=== PATIENT | female | born 1960 | race Hispanic/Latino ===

== ENCOUNTER 2021-04-04 14:54 | Inpatient (IN) | payer BC ==
[~2021-04-04] VITALS: Ht 157.5 cm; Wt 74.8 kg
[2021-04-04 15:47] LABS: BASOPHILS % 0.2 % (0.0-1.0); HEMOGLOBIN 15.9 g/dL (12.0-16.0); LYMPHOCYTES # (AUTO) 0.5 (1.0-3.2); LYMPHOCYTES % 11.9 % (18.0-39.1); MEAN CORPUSCULAR HEMOGLOBIN 26.9 pg (28-32); MEAN CORPUSCULAR HGB CONC 33.1 g/dL (31-35); MEAN CORPUSCULAR VOLUME 81.1 fL (81-99); MONOCYTES # (AUTO) 0.6 (0.2-0.8); MONOCYTES % 12.5 % (4.4-11.3); NEUTROPHILS # (AUTO) 3.3 (2.1-6.9); NEUTROPHILS % 74.7 % (38.7-80.0); PLATELET COUNT 194 x10e3/uL (140-360); RED BLOOD COUNT 5.92 x10e6/uL (3.6-5.1); RED CELL DISTRIBUTION WIDTH 13.2 % (11.7-14.4)
[2021-04-04 16:01] LABS: ALBUMIN 3.4 g/dL (3.5-5.0); ALBUMIN/GLOBULIN RATIO 0.9 (0.8-2.0); CALCIUM 9.3 mg/dL (8.4-10.2); CREATININE, SERUM 0.79 mg/dL (0.57-1.11)
[2021-04-04] MEDS ORDERED: SODIUM CHLORIDE 0.9% 50ML 50 ML ONE (16:27)
[2021-04-04] MEDS ORDERED: IOPAMIDOL 370 MG/ML 200 ML INFUS..BTL INJ ONE (16:27)
[2021-04-04] MEDS ORDERED: METHYLPREDNISOLONE SOD SUCC 125 MG/2ML VIAL IV ONE (17:15)
[2021-04-04] MEDS ORDERED: GUAIFENESIN/CODEINE 5 ML LIQD PO PRN (18:15)
[2021-04-04] MEDS ORDERED: ONDANSETRON HCL INJ 2MG/ML 2ML 2 MG/ML VIAL IV PRN (18:15)
[2021-04-04] MEDS ORDERED: ACETAMINOPHEN 325 MG TAB PO PRN (18:15)
[2021-04-04 18:50] VITALS: BP 138/79
[2021-04-04] MEDS ORDERED: CEFTRIAXONE 1 GM in SODIUM CHLORIDE 0.9% 50ML 50 ML IV SCH (19:00)
[2021-04-04 19:05] VITALS: BP 130/85
[2021-04-04 19:20] VITALS: BP 138/79
[2021-04-04 20:00] VITALS: BP 138/79
[2021-04-04] MEDS ORDERED: REMDESIVIR 100MG 200 MG in SODIUM CHLORIDE 0.9% 100 ML IV ONE (20:30)
[2021-04-04] MEDS ORDERED: SODIUM CHLORIDE 0.9% 250ML 250 ML ONE (21:24)
[2021-04-05] VITALS (8 sets, daily range): BP systolic 126–149; BP diastolic 64–82
[2021-04-05] MEDS ORDERED: LEVOTHYROXINE75 MCG PO (00:15)
[2021-04-05] MEDS ORDERED: LISINOPRIL-HCT1 EACH (00:15)
[2021-04-05] MEDS ORDERED: DEXTROSE 50% SYRINGE 50 ML IV PRN (00:30)
[2021-04-05] MEDS ORDERED: DOCUSATE SODIUM 100 MG CAP PO PRN (00:30)
[2021-04-05] MEDS ORDERED: POTASSIUM CHLORIDE 20 MEQ TAB CR PO PRN (00:30)
[2021-04-05] MEDS ORDERED: ALBUTEROL/IPRATROPIUM 3 ML NEB NEB PRN (00:30)
[2021-04-05] MEDS ORDERED: DIPHENHYDRAMINE HCL 25 MG CAP PO PRN (00:30)
[2021-04-05] MEDS ORDERED: TRAMADOL HCL 50 MG TAB PO PRN (00:30)
[2021-04-05] MEDS ORDERED: HYDRALAZINE HCL 20 MG/ML VIAL IV PRN (00:30)
[2021-04-05] MEDS ORDERED: ACETAMINOPHEN 325 MG TAB PO PRN (00:30)
[2021-04-05] MEDS ORDERED: MELATONIN 5 MG TABLET PO PRN ×2 (00:30→14:15)
[2021-04-05] MEDS ORDERED: BENZONATATE 100 MG CAP PO PRN (00:30)
[2021-04-05] MEDS ORDERED: ONDANSETRON HCL INJ 2MG/ML 2ML 2 MG/ML VIAL IV PRN (00:30)
[2021-04-05] MEDS ORDERED: SIMETHICONE 80 MG CHEW PO PRN (00:30)
[2021-04-05] MEDS ORDERED: LIDOCAINE 4% PATCH TP PRN (00:30)
[2021-04-05] MEDS: MIDODRINE 2.5 MG TAB PO SCH ×2 (08:14→12:33)
[2021-04-05] MEDS: PANTOPRAZOLE SOD 40 MG TABEC PO SCH (08:14)
[2021-04-05] MEDS: ZINC SULFATE 50 MG CAP PO SCH (08:51)
[2021-04-05] MEDS: DEXAMETHASONE SOD PHOS 10 MG/1 ML VIAL IV SCH (08:51)
[2021-04-05] MEDS: ASCORBIC ACID 500 MG TAB PO SCH ×2 (08:51→16:49)
[2021-04-05] MEDS: REMDESIVIR 100MG 100 MG in SODIUM CHLORIDE 0.9% 100 ML IV SCH (14:47)
[2021-04-05] MEDS: ENOXAPARIN SOD INJ 40 MG/0.4 ML SYR SC SCH (16:49)
[2021-04-06] VITALS (11 sets, daily range): BP systolic 126–147; BP diastolic 59–78
[2021-04-06 05:03] LABS: HEMATOCRIT 44.1 % (34.2-44.1); HEMOGLOBIN 14.3 g/dL (12.0-16.0); LYMPHOCYTES # (AUTO) 0.7 (1.0-3.2); LYMPHOCYTES % 10.6 % (18.0-39.1); MEAN CORPUSCULAR HEMOGLOBIN 26.8 pg (28-32); MEAN CORPUSCULAR HGB CONC 32.4 g/dL (31-35); MEAN CORPUSCULAR VOLUME 82.7 fL (81-99); MONOCYTES # (AUTO) 0.7 (0.2-0.8); MONOCYTES % 11.9 % (4.4-11.3); NEUTROPHILS # (AUTO) 4.7 (2.1-6.9); NEUTROPHILS % 76.8 % (38.7-80.0); PLATELET COUNT 230 x10e3/uL (140-360); RED BLOOD COUNT 5.33 x10e6/uL (3.6-5.1); RED CELL DISTRIBUTION WIDTH 13.3 % (11.7-14.4)
[2021-04-06 05:30] LABS: ANION GAP 15.9 mmol/L (8-16); CALCIUM 9.1 mg/dL (8.4-10.2); CREATININE, SERUM 0.81 mg/dL (0.57-1.11); POTASSIUM 3.9 mmol/L (3.5-5.1)
[2021-04-06] MEDS ORDERED: DEXTROSE 50% SYRINGE 50 ML IV PRN (06:45)
[2021-04-06] MEDS: INSULIN LISPRO 100 UNIT/1 ML 3ML VIAL SQ SCH ×4 (07:30→20:25)
[2021-04-06] MEDS: ASCORBIC ACID 500 MG TAB PO SCH ×2 (08:40→16:29)
[2021-04-06] MEDS: PANTOPRAZOLE SOD 40 MG TABEC PO SCH (08:40)
[2021-04-06] MEDS: ZINC SULFATE 50 MG CAP PO SCH (08:40)
[2021-04-06] MEDS: DEXAMETHASONE SOD PHOS 10 MG/1 ML VIAL IV SCH (08:40)
[2021-04-06] MEDS: REMDESIVIR 100MG 100 MG in SODIUM CHLORIDE 0.9% 100 ML IV SCH (13:38)
[2021-04-06] MEDS ORDERED: ONDANSETRON HCL 4 MG ORAL DISINTEGRATING TAB PO PRN (14:45)
[2021-04-06] MEDS: ENOXAPARIN SOD INJ 40 MG/0.4 ML SYR SC SCH (16:29)
[2021-04-06] MEDS: AZITHROMYCIN 250 MG TAB PO SCH (20:20)
[2021-04-07] VITALS (7 sets, daily range): BP systolic 118–152; BP diastolic 61–68
[2021-04-07] MEDS: INSULIN LISPRO 100 UNIT/1 ML 3ML VIAL SQ SCH ×4 (08:30→21:28)
[2021-04-07] MEDS: ZINC SULFATE 50 MG CAP PO SCH (09:40)
[2021-04-07] MEDS: PANTOPRAZOLE SOD 40 MG TABEC PO SCH (09:40)
[2021-04-07] MEDS: DEXAMETHASONE SOD PHOS 10 MG/1 ML VIAL IV SCH (09:40)
[2021-04-07] MEDS: ASCORBIC ACID 500 MG TAB PO SCH ×2 (09:40→16:50)
[2021-04-07] MEDS: REMDESIVIR 100MG 100 MG in SODIUM CHLORIDE 0.9% 100 ML IV SCH (14:27)
[2021-04-07] MEDS: ENOXAPARIN SOD INJ 40 MG/0.4 ML SYR SC SCH (16:50)
[2021-04-07] MEDS: AZITHROMYCIN 250 MG TAB PO SCH (20:12)
[2021-04-08] VITALS (8 sets, daily range): BP systolic 121–150; BP diastolic 66–99
[2021-04-08] MEDS: INSULIN LISPRO 100 UNIT/1 ML 3ML VIAL SQ SCH ×4 (07:30→21:15)
[2021-04-08] MEDS: PANTOPRAZOLE SOD 40 MG TABEC PO SCH (07:30)
[2021-04-08] MEDS: ASCORBIC ACID 500 MG TAB PO SCH ×2 (09:00→16:42)
[2021-04-08] MEDS: ZINC SULFATE 50 MG CAP PO SCH (09:00)
[2021-04-08] MEDS: DEXAMETHASONE SOD PHOS 10 MG/1 ML VIAL IV SCH (09:00)
[2021-04-08 10:23] LABS: ANION GAP 14.9 mmol/L (8-16); CALCIUM 9.2 mg/dL (8.4-10.2); CREATININE, SERUM 0.8 mg/dL (0.57-1.11); POTASSIUM 3.9 mmol/L (3.5-5.1)
[2021-04-08] MEDS: REMDESIVIR 100MG 100 MG in SODIUM CHLORIDE 0.9% 100 ML IV SCH (14:00)
[2021-04-08] MEDS: ENOXAPARIN SOD INJ 40 MG/0.4 ML SYR SC SCH (16:43)
[2021-04-09] VITALS (8 sets, daily range): BP systolic 126–157; BP diastolic 69–80
[2021-04-09 05:45] LABS: ANION GAP 15.2 mmol/L (8-16); CREATININE, SERUM 0.79 mg/dL (0.57-1.11); POTASSIUM 4.2 mmol/L (3.5-5.1)
[2021-04-09 05:46] LABS: CALCIUM 8.6 mg/dL (8.4-10.2)
[2021-04-09] MEDS: PANTOPRAZOLE SOD 40 MG TABEC PO SCH (08:33)
[2021-04-09] MEDS: DEXAMETHASONE SOD PHOS 10 MG/1 ML VIAL IV SCH (08:33)
[2021-04-09] MEDS: ASCORBIC ACID 500 MG TAB PO SCH ×2 (08:33→16:53)
[2021-04-09] MEDS: ZINC SULFATE 50 MG CAP PO SCH (08:33)
[2021-04-09] MEDS: INSULIN LISPRO 100 UNIT/1 ML 3ML VIAL SQ SCH ×5 (11:50→22:01)
[2021-04-09 15:05] LABS: FREE T4 (FREE THYROXINE) 1.03 ng/dL (0.8-1.8); THYROID STIMULATING HORMONE 0.857 uIU/mL (0.350-4.940)
[2021-04-09] MEDS: ENOXAPARIN SOD INJ 40 MG/0.4 ML SYR SC SCH (16:54)
[2021-04-09] MEDS: INSULIN GLARGINE 100 UNITS/ML VIAL SQ SCH (16:58)
[2021-04-10 01:27] VITALS: BP 148/78
[2021-04-10 05:58] VITALS: BP 149/73
[2021-04-10] MEDS: INSULIN LISPRO 100 UNIT/1 ML 3ML VIAL SQ SCH ×4 (07:30→11:58)
[2021-04-10 08:00] VITALS: BP 157/83
[2021-04-10] MEDS: PANTOPRAZOLE SOD 40 MG TABEC PO SCH (08:04)
[2021-04-10 08:17] VITALS: BP 157/83
[2021-04-10] MEDS: ZINC SULFATE 50 MG CAP PO SCH (08:40)
[2021-04-10] MEDS: ASCORBIC ACID 500 MG TAB PO SCH (08:40)
[2021-04-10] MEDS: DEXAMETHASONE SOD PHOS 10 MG/1 ML VIAL IV SCH (08:41)
[2021-04-10] MEDS: INSULIN GLARGINE 100 UNITS/ML VIAL SQ SCH (08:45)
[2021-04-10 09:00] VITALS: BP 157/83
[2021-04-10 12:00] VITALS: BP 139/69
[2021-04-10] MEDS ORDERED: INSULIN LISPRO 100 UNIT/1 ML 3ML VIAL SQ SCH (16:30)
[2021-04-10] MEDS ORDERED: INSULIN GLARGINE 100 UNITS/ML VIAL SQ SCH (17:00)
== END 2021-04-10 15:40 | disposition home or self-care (01) | DRG 177 ==
LOC: ER 15:25 → ERHOLD 17:11 → MED/SURG2 18:23 → OBSVTOIN 04-05 08:44
PROVIDERS: ADMIT Internal Medicine; ATTEND Internal Medicine
PROC: XW033E5 Introduction of Remdesivir Anti-infective into Peripheral Vein, Percutaneous Approach, New Technology Group 5 (ICD-10-PCS; 2021-04-04)
PROC: 3E0333Z Introduction of Anti-inflammatory into Peripheral Vein, Percutaneous Approach (ICD-10-PCS; principal; 2021-04-05)
DX: U07.1 COVID-19 (principal); J12.82 Pneumonia due to coronavirus disease 2019; J96.01 Acute respiratory failure with hypoxia; J15.9 Unspecified bacterial pneumonia; I10 Essential (primary) hypertension; E66.01 Morbid (severe) obesity due to excess calories; G35 Multiple sclerosis; E03.9 Hypothyroidism, unspecified; D64.9 Anemia, unspecified; R53.81 Other malaise; Z83.3 Family history of diabetes mellitus; Z68.30 Body mass index [BMI] 30.0-30.9, adult; E11.65 Type 2 diabetes mellitus with hyperglycemia
CPT/HCPCS: 36415; 71260; 80048; 80053; 82948; 83036; 84439; 84443; 84484; 85025; 93005; 94799; 96372; 99284; G0378; J0248; J0456; J1100; J1650; J1815; J2930; J7050; Q0162; Q9967; U0002

== ENCOUNTER 2022-05-03 07:09 | Emergency (ER) | payer BC ==
[~2022-05-03] VITALS: Ht 160 cm; Wt 103.0 kg
[~2022-05-03 07:09] MED LIST: LEVOTHYROXINE75 MCG PO; LISINOPRIL-HCT1 EACH
[2022-05-03 07:28] LABS: BASOPHILS # (AUTO) 0.1 (0.0-0.1); BASOPHILS % 1.2 % (0.0-1.0); EOSINOPHILS # (AUTO) 0.3 (0.0-0.4); EOSINOPHILS % 3.4 % (0.0-6.0); HEMOGLOBIN 14.7 g/dL (12.0-16.0); LYMPHOCYTES # (AUTO) 1.2 (1.0-3.2); LYMPHOCYTES % 16.6 % (18.0-39.1); MEAN CORPUSCULAR HEMOGLOBIN 27.7 pg (28-32); MEAN CORPUSCULAR HGB CONC 32.7 g/dL (31-35); MEAN CORPUSCULAR VOLUME 84.7 fL (81-99); MONOCYTES # (AUTO) 0.6 (0.2-0.8); MONOCYTES % 7.8 % (4.4-11.3); NEUTROPHILS # (AUTO) 5.2 (2.1-6.9); NEUTROPHILS % 70.3 % (38.7-80.0); PLATELET COUNT 235 x10e3/uL (140-360); RED BLOOD COUNT 5.31 x10e6/uL (3.6-5.1); RED CELL DISTRIBUTION WIDTH 12.5 % (11.7-14.4)
[2022-05-03 07:53] LABS: ALANINE AMINOTRANSFERASE 33 IU/L (0-55); ALBUMIN 3.6 g/dL (3.5-5.0); ALBUMIN/GLOBULIN RATIO 1.1 (0.8-2.0); ALKALINE PHOSPHATASE 122 IU/L (40-150); BLOOD UREA NITROGEN 17 mg/dL (7-26); BUN/CREATININE RATIO 24 (6-25); CALCIUM 9.4 mg/dL (8.4-10.2); CARBON DIOXIDE 25 mmol/L (22-29); CHLORIDE 103 mmol/L (98-107); CREATINE KINASE 71 IU/L (29-168); CREATININE, SERUM 0.71 mg/dL (0.57-1.11); GLUCOSE 295 mg/dL (74-118); MAGNESIUM 1.9 MG/DL (1.3-2.1); SODIUM 139 mmol/L (136-145)
[2022-05-03 08:13] LABS: INR 0.91; PROTHROMBIN TIME 12.8 seconds (11.9-14.5)
[2022-05-03 11:31] VITALS: BP 160/91
== END 2022-05-03 11:20 | disposition home or self-care (01) ==
LOC: ER 07:16
DX: R06.00 Dyspnea, unspecified (principal); R05.9 Cough, unspecified; I10 Essential (primary) hypertension; E03.9 Hypothyroidism, unspecified; G35 Multiple sclerosis; Z20.822 Contact with and (suspected) exposure to COVID-19
CPT/HCPCS: 36415; 71045; 80053; 82550; 82553; 83735; 83880; 84484; 85025; 85379; 85610; 85730; 93005; 93971; 99284; U0002